=== PATIENT | male | born 1990 | race Two or more races ===

== ENCOUNTER 2020-06-03 18:48 | Emergency (ER) | payer OTHER ==
--- NOTE | 2020-06-03 18:50 | PDOC ---
Rapid Medical Evaluation Time Seen by Provider: 06/03/20 18:50 Medical Evaluation: Allergies Allergy/AdvReac Type Severity Reaction Status Date / Time No Known Allergies Allergy Verified 03/26/20 07:11 06/03/20 18:50 I have performed a brief in-person evaluation of this patient. The patient presents with a chief complaint of: Lower back pain x 3 months, seen in multiple ERs for same, including at [facility], w/ negative w/u. Does not currently have a PMD but just got insurance. Take advil w/ relief "sometimes". Returned today because states "Someone told me that if I come back, I can get an MRI" Pertinent physical exam findings:stable, well neva I have ordered the following:nothing The patient will proceed to the ED for further evaluation. Discharge Disposition - Diagnosis Low back pain Qualifiers: Chronicity: unspecified Back pain laterality: unspecified Sciatica presence: without sciatica Qualified Code(s): M54.5 - Low back pain - Referrals - Patient Instructions - Post Discharge Activity
[2020-06-03 18:54] VITALS: BP 117/65; PULSE 79; TEMP 98.5; BMI 31.0
--- OUTSIDE RECORDS SUMMARY | 2020-06-03 19:11 | XMS ---
:1990 Author Organization [facility] Support Name Relationship Address Phone UE, UNEMPLOYED Unavailable Unavailable Unavailable UE Unavailable Unavailable Unavailable NETTE PATEL [address] [place] [address] NETTE PATEL Spouse [address] [place] [address] Re-disclosure Warning The records that you are about to access may contain information from federally- assisted alcohol or drug abuse programs. If such information is present, then the following federally mandated warning applies: This information has been disclosed to you from records protected by federal confidentiality rules (42 CFR part 2). The federal rules prohibit you from making any further disclosure of this information unless further disclosure is expressly permitted by the written consent of the person to whom it pertains or as otherwise permitted by 42 CFR part 2. A general authorization for the release of medical or other information is NOT sufficient for this purpose. The Federal rules restrict any use of the information to criminally investigate or prosecute any alcohol or drug abuse patient.The records that you are about to access may contain highly sensitive health information, the redisclosure of which is protected by Article 27-F of the [facility] Public Health law. If you continue you may haveaccess to information: Regarding HIV / AIDS; Provided by facilities licensed or operated by the [facility] Office of Mental Health; or Provided by the [facility] Office for People With Developmental Disabilities. If such information is present, then the following [facility] mandated warning applies: This information has been disclosed to you from confidential records which are protected by state law. State law prohibits you from making any further disclosure of this information without the specific written consent of the person to whom it pertains, or as otherwise permitted by law. Any unauthorized further disclosure in violation of state law may result in a fine or group home sentence or both. A general authorization for the release of medical or other information is NOT sufficient authorization for further disclosure. Insurance Providers Payer name Policy type / Policy ID Covered Covered libertarian's Policy Plan Coverage type libertarian ID relationship to [employer] Information [employer] H[employer] HMO [id number] SP [id number] 1 Results ID Date Data Source [id number] 02/06/2020 04:56:00 PM EDT [facility] Name Value Range Interpretation Code Description Data Shital rce(s) Supporting Document(s ) COV2 [facility] This lab was ordered by SOLO GREENBERG and [facility] Procedure
--- NOTE | 2020-06-03 19:21 | PDOC ---
History of Present Illness - General Chief Complaint: Back Pain Stated Complaint: BACK PAIN Time Seen by Provider: 06/03/20 18:50 History Source: Patient Exam Limitations: No Limitations - History of Present Illness Initial Comments: 06/03/20 19:22 30-year-old male no sniffing past medical history presenting to the ED with low back pain for 3 months. Patient states that he has had intermittent lower back pain worse in the morning relieved with Advil for some time now. Of note patient is a stomach sleeper, patient denies any trauma or previous injury. Patient was seen here in March for similar symptoms with a negative work-up. Pt otherwise denies: fevers, chills, syncope, lightheadedness, dizziness, headaches, neck pain, chest pain, shortness of breath, palpitations, abdominal pain, nausea, vomiting, diarrhea, constipation. Past History - Medical History Allergies/Adverse Reactions: Allergies Allergy/AdvReac Type Severity Reaction Status Date / Time No Known Allergies Allergy Verified 06/03/20 18:51 Home Medications: Ambulatory Orders Ibuprofen [Ibu] 600 mg PO TID #30 tablet 06/03/20 COPD: No - Psycho-Social/Smoking History Smoking History: Never smoked Have you smoked in the past 12 months: No - Substance Abuse Hx (Audit-C & DAST Scrn) How often the patient has a drink containing alcohol: Never Score: In Men: 4 or > Positive; In Women: 3 or > Positive: 0 Screen Result (Pos requires Nsg. Audit-10AR): Negative In the last yr the pt used illegal drug/Rx for NonMed reason: No Score: Yes response is considered Positive: 0 Screen Result (Positive result requires Nsg. DAST-10): Negative *Physical Exam - Vital Signs Last Vital Signs Temp Pulse Resp BP Pulse Ox 98.5 F 79 18 117/65 98 06/03/20 18:51 06/03/20 18:51 06/03/20 18:51 06/03/20 18:51 06/03/20 18:51 - Physical Exam 06/03/20 19:23 Gen: AAOx 3, no acute distress, comfortable, no signs of respiratory distress HENT: atraumatic, normocephalic with no laceration or contusion. Nasal mucosa without erythema. Oropharynx without erythema or exudates. Mucous membranes moist. EYES: PERRL, EOM intact, conjunctiva pink NECK: supple; trachea midline; no JVD, no lymphadenopathy, or thyromegaly CV: RRR no murmurs, gallops, or rubs. CHEST: CTA b/l no wheezing, rales or rhonchi ABD: +BS/ND. no TTP; soft, no rebound, no guarding EXTREMITY: no cyanosis or erythema. 2+ dorsalis pedis, posterior tibial, and radial pulse. No pedal edema; no calf swelling or tenderness SKIN: no rash, warm and dry, no diaphoresis HEME: no purpura or ecchymosis NEURO: normal speech, CN II-XII intact, sensation intact, normal gait, no cerebellar deficits MS: 5/5 strength in all extremities, FROM intact in all extremities. Back: Mildly tender to palpation to lumbar paravertebrals without midline tenderness supple Medical Decision Making - Medical Decision Making 06/03/20 19:23 30-year-old male no past medical history with lower back pain Vital signs stable No acute intervention warranted in the ED at this time Patient struck to follow-up with orthopedics and PCP Ibuprofen sent to patient's preferred pharmacy for symptomatic relief Strict return precautions given including signs and symptoms of cauda equina and spinal stenosis Pt appears well and is safe and stable for discharge with strict return precautions including signs and symptoms requring immediate return to the ED Supportive care instructions explained and given to pt. Reasons to return emergently to ER explained and given. Importance of follow up with PMD and other specialists as indicated stressed to pt. Pt verbalized understanding of instructions. Pt to follow up with PMD in 2 days. Discharge - Discharge Information Problems reviewed: Yes Clinical Impression/Diagnosis: Low back pain Qualifiers: Chronicity: unspecified Back pain laterality: unspecified Sciatica presence: without sciatica Qualified Code(s): M54.5 - Low back pain Condition: Stable Disposition: HOME - Additional Discharge Information Prescriptions: Ibuprofen [Ibu] 600 mg PO TID #30 tablet - Follow up/Referral Referrals: Kartik Law MD [Staff Physician] - Albert Vazquez MD [Staff Physician] - Tony Liang DO [Staff Physician] - - Patient Discharge Instructions Patient Printed Discharge Instructions: DI for Low Back Pain - Post Discharge Activity
== END 2020-06-03 19:52 | disposition home or self-care (01) ==
LOC: JERFT 18:48 → JER 18:48 → JERFT 19:52
DX: M54.5 Low back pain (principal)
CPT/HCPCS: 99282-25